=== PATIENT | male | born 1940 | race Caucasian/White ===

== ENCOUNTER 2023-07-12 19:00 | Inpatient (IN) | payer MEDICARE ==
[~2023-07-12] VITALS: Ht 182.9 cm; Wt 84.8 kg
[2023-07-12] MEDS ORDERED: IV NS 0.9% 250 ML IV ONE (19:20)
[2023-07-12] MEDS ORDERED: IOHEXOL-350 100 ML VIAL IV ONE (19:20)
[2023-07-12 19:42] LABS: BASOPHILS # (AUTO) 0.1 K/uL (0.0-0.2); BASOPHILS % (AUTO) 0.8 % (0.0-2.0); EOSINOPHILS # (AUTO) 0.1 K/uL (0.0-0.7); EOSINOPHILS % (AUTO) 1.3 % (0.0-6.0); HEMATOCRIT 37 % (39-51); HEMOGLOBIN 12.6 g/dL (13.5-17.5); LYMPHOCYTES # (AUTO) 1.2 K/uL (0.8-4.8); LYMPHOCYTES % (AUTO) 14.8 % (20.0-44.0); MEAN CORPUSCULAR HEMOGLOBIN 31 PG (26.0-33.0); MEAN CORPUSCULAR HGB CONC 34 g/dl (31.0-36.0); MEAN CORPUSCULAR VOLUME 92 fL (80-96); MONOCYTES # (AUTO) 0.7 K/uL (0.1-1.30); NEUTROPHILS # (AUTO) 5.8 K/uL (1.8-8.9); NEUTROPHILS % (AUTO) 74.1 % (43.0-81.0); PLATELET COUNT (AUTO) 181 K/uL (150-450); RED BLOOD CELL COUNT(AUTO) 4.03 MIL/uL (4.5-6.0); RED CELL DISTRIBUTION WIDTH 14.2 % (11.5-15.0); WHITE BLOOD COUNT (AUTO) 7.8 K/uL (4.3-11.0)
[2023-07-12 19:55] LABS: CALCIUM, SERUM 8.4 mg/dL (8.5-10.1); CARBON DIOXIDE 24 mmol/L (21-32); CHLORIDE 102 mmol/L (98-107); CREATININE 0.9 mg/dL (0.6-1.3); GLUCOSE 117 mg/dL (74-106); POTASSIUM 3.6 mmol/L (3.5-5.1); SODIUM SERUM 134 mmol/L (136-145); UREA NITROGEN, BLOOD 20 mg/dL (7-18)
[2023-07-12 20:04] LABS: INR 1.13 (0.91-1.10); PARTIAL THROMBOPLASTIN TIME 22.3 SEC (24.3-34.3); PROTHROMBIN TIME 11.9 SECS (9.2-11.1)
[2023-07-12 20:26] LABS: APPEARANCE,URINE CLEAR (CLEAR); BILIRUBIN,URINE NEGATIVE (NEGATIVE); BLOOD, URINE NEGATIVE Ery/uL (NEGATIVE); COLOR,URINE YELLOW (YELLOW); KETONES,URINE TRACE mg/dL (NEGATIVE); LEUKOCYTE ESTERASE ,URINE NEGATIVE (NEGATIVE); NITRITE, URINE NEGATIVE (NEGATIVE); PROTEIN,URINE NEGATIVE (NEGATIVE); UGLUCOSE NEGATIVE (NEGATIVE); UROBILINOGEN,URINE 0.2 EU/dL (0.2)
[2023-07-12] MEDS ORDERED: hydrALAZINE HCL IV 20 MG VIAL IV PRN (21:30)
[2023-07-12 21:39] LABS: AMPHETAMINE, URINE NEGATIVE (NEGATIVE); BARBITURATE, URINE NEGATIVE (NEGATIVE); BENZODIAZEPINE, URINE NEGATIVE (NEGATIVE); CANNABINOID, URINE NEGATIVE (NEGATIVE); COCCAINE, URINE NEGATIVE (NEGATIVE); OPIATE, URINE NEGATIVE (NEGATIVE); PHENCYCLIDINE SCREEN,URINE NEGATIVE (NEGATIVE)
[2023-07-13] MEDS: ENOXAPARIN SODIUM 40 MG/0.4 ML DISP.SYRIN SQ SCH ×2 (02:40→23:05)
[2023-07-13] MEDS ORDERED: SIMVASTATIN 40 MG TABLET PO SCH (02:41)
[2023-07-13] MEDS ORDERED: ENOXAPARIN SODIUM 40 MG/0.4 ML DISP.SYRIN SQ ONE (03:59)
[2023-07-13] MEDS ORDERED: SIMVASTATIN 20 MG TABLET ONE (04:00)
[2023-07-13] MEDS: IV NS 0.9% 1,000 ML IV PRN ×2 (04:06→23:04)
[2023-07-13] MEDS ORDERED: PANTOPRAZOLE 40 MG TABLET.DR PO ONE (08:40)
[2023-07-13] MEDS ORDERED: ASPIRIN 325 MG TABLET ONE (08:41)
[2023-07-13] MEDS: PANTOPRAZOLE 40 MG TABLET.DR PO SCH (08:42)
[2023-07-13] MEDS: ASPIRIN EC 325 MG TABLET.DR PO SCH (08:42)
[2023-07-13] MEDS ORDERED: ASPIRIN EC 325 MG TABLET.DR PO ONE (08:42)
[2023-07-13 11:08] LABS: BASOPHILS # (AUTO) 0.1 K/uL (0.0-0.2); BASOPHILS % (AUTO) 0.6 % (0.0-2.0); CALCIUM, SERUM 8.6 mg/dL (8.5-10.1); CARBON DIOXIDE 22 mmol/L (21-32); CHLORIDE 104 mmol/L (98-107); CREATININE 0.9 mg/dL (0.6-1.3); EOSINOPHILS % (AUTO) 0.3 % (0.0-6.0); GLUCOSE 124 mg/dL (74-106); HEMATOCRIT 40 % (39-51); HEMOGLOBIN 13.7 g/dL (13.5-17.5); LYMPHOCYTES # (AUTO) 0.8 K/uL (0.8-4.8); LYMPHOCYTES % (AUTO) 9.2 % (20.0-44.0); MEAN CORPUSCULAR HEMOGLOBIN 32 PG (26.0-33.0); MEAN CORPUSCULAR HGB CONC 35 g/dl (31.0-36.0); MEAN CORPUSCULAR VOLUME 92 fL (80-96); MONOCYTES # (AUTO) 0.9 K/uL (0.1-1.30); MONOCYTES % (AUTO) 10.7 % (2.0-12.0); NEUTROPHILS % (AUTO) 79.2 % (43.0-81.0); PLATELET COUNT (AUTO) 190 K/uL (150-450); POTASSIUM 3.8 mmol/L (3.5-5.1); RED BLOOD CELL COUNT(AUTO) 4.33 MIL/uL (4.5-6.0); RED CELL DISTRIBUTION WIDTH 13.9 % (11.5-15.0); SODIUM SERUM 137 mmol/L (136-145); UREA NITROGEN, BLOOD 16 mg/dL (7-18); WHITE BLOOD COUNT (AUTO) 8.8 K/uL (4.3-11.0)
[2023-07-13 11:27] LABS: INR 1.07 (0.91-1.10); PARTIAL THROMBOPLASTIN TIME 26.7 SEC (24.3-34.3); PROTHROMBIN TIME 11.3 SECS (9.2-11.1)
[2023-07-13 12:02] LABS: CHOLESTEROL 185 mg/dL (<200); HDL CHOLESTEROL 42 mg/dL (40-60); LDL 117 mg/dL (0-99); TRIGLYCERIDES 84 mg/dL (30-150)
[2023-07-13 20:45] VITALS: BP 134/71; TEMP 97.8; O2SAT 98
[2023-07-13 21:00] VITALS: BP 138/80; TEMP 97.8; O2SAT 99
[2023-07-13 21:02] VITALS: BP 134/71; TEMP 97.8; O2SAT 98
[2023-07-13 22:28] VITALS: BP 134/71; TEMP 97.8; O2SAT 98
[2023-07-13] MEDS: SIMVASTATIN 20 MG TABLET PO SCH (23:05)
[2023-07-14] VITALS: BP 143/78; TEMP 97.9; O2SAT 97
[2023-07-14 04:00] VITALS: BP 124/64; TEMP 97.9; O2SAT 94
[2023-07-14 04:55] VITALS: BP 124/64; TEMP 97.9; O2SAT 94
[2023-07-14 07:09] LABS: BASOPHILS % (AUTO) 0.4 % (0.0-2.0); EOSINOPHILS # (AUTO) 0.1 K/uL (0.0-0.7); EOSINOPHILS % (AUTO) 1.3 % (0.0-6.0); HEMATOCRIT 37 % (39-51); LYMPHOCYTES # (AUTO) 0.9 K/uL (0.8-4.8); LYMPHOCYTES % (AUTO) 12.2 % (20.0-44.0); MEAN CORPUSCULAR HEMOGLOBIN 32 PG (26.0-33.0); MEAN CORPUSCULAR HGB CONC 35 g/dl (31.0-36.0); MEAN CORPUSCULAR VOLUME 92 fL (80-96); MONOCYTES # (AUTO) 0.8 K/uL (0.1-1.30); MONOCYTES % (AUTO) 11.4 % (2.0-12.0); NEUTROPHILS # (AUTO) 5.4 K/uL (1.8-8.9); NEUTROPHILS % (AUTO) 74.7 % (43.0-81.0); PLATELET COUNT (AUTO) 178 K/uL (150-450); RED BLOOD CELL COUNT(AUTO) 4.02 MIL/uL (4.5-6.0); RED CELL DISTRIBUTION WIDTH 13.9 % (11.5-15.0); WHITE BLOOD COUNT (AUTO) 7.2 K/uL (4.3-11.0)
[2023-07-14 07:30] VITALS: BP 130/71; TEMP 98.1; O2SAT 97
[2023-07-14 07:33] LABS: CALCIUM, SERUM 8.5 mg/dL (8.5-10.1); CARBON DIOXIDE 23 mmol/L (21-32); CHLORIDE 107 mmol/L (98-107); CREATININE 0.7 mg/dL (0.6-1.3); GLUCOSE 102 mg/dL (74-106); MAGNESIUM 2.2 mg/dL (1.8-2.4); POTASSIUM 3.4 mmol/L (3.5-5.1); SODIUM SERUM 139 mmol/L (136-145); UREA NITROGEN, BLOOD 14 mg/dL (7-18)
[2023-07-14 08:11] LABS: FOLIC ACID 6.7 ng/mL (>3.0)
[2023-07-14] MEDS: PANTOPRAZOLE 40 MG TABLET.DR PO SCH (08:23)
[2023-07-14] MEDS: ASPIRIN EC 325 MG TABLET.DR PO SCH (08:24)
[2023-07-14 10:07] LABS: THYROID STIMULATING HORMONE 0.469 uIU/mL (0.358-3.74)
[2023-07-14] MEDS ORDERED: POTASSIUM CHLORIDE 20 MEQ TAB.PRT.SR PO SCH ×2 (11:00→11:30)
[2023-07-14] MEDS ORDERED: ASPI-1420 PO (13:35)
[2023-07-14] MEDS ORDERED: ATOR40TA PO (13:35)
[2023-07-14 16:00] VITALS: BP 143/77; TEMP 97.5; O2SAT 98
[2023-07-14] MEDS: IV NS 0.9% 1,000 ML IV PRN (18:38)
[2023-07-14 20:00] VITALS: BP 140/71; TEMP 98.1; O2SAT 99
[2023-07-14] MEDS: SIMVASTATIN 20 MG TABLET PO SCH (22:24)
[2023-07-14] MEDS: ENOXAPARIN SODIUM 40 MG/0.4 ML DISP.SYRIN SQ SCH (22:26)
[2023-07-15] VITALS: BP 142/74; TEMP 98.6; O2SAT 96
[2023-07-15 04:00] VITALS: BP 135/79; TEMP 98.2; O2SAT 96
[2023-07-15 07:18] LABS: CALCIUM, SERUM 8.5 mg/dL (8.5-10.1); CREATININE 0.7 mg/dL (0.6-1.3); POTASSIUM 3.8 mmol/L (3.5-5.1)
[2023-07-15 07:30] VITALS: BP 145/74; TEMP 97.9; O2SAT 99
[2023-07-15] MEDS: PANTOPRAZOLE 40 MG TABLET.DR PO SCH (07:32)
[2023-07-15] MEDS: ASPIRIN EC 325 MG TABLET.DR PO SCH (08:25)
[2023-07-15] MEDS ORDERED: ATORVASTATIN 40 MG TABLET PO SCH (18:00)
== END 2023-07-15 09:30 | disposition home or self-care (01) | DRG 73 ==
LOC: ER 19:18 → TRANSITION 07-13 02:23 → TELE 07-13 20:11
PROVIDERS: ADMIT Nurse Practitioner Acute Care; ATTEND Nurse Practitioner Family
DX: G90.8 Other disorders of autonomic nervous system (principal); G93.41 Metabolic encephalopathy; G45.9 Transient cerebral ischemic attack, unspecified; R79.89 Other specified abnormal findings of blood chemistry; D63.8 Anemia in other chronic diseases classified elsewhere; Z86.73 Personal history of transient ischemic attack (TIA), and cerebral infarction without residual deficits; I95.9 Hypotension, unspecified; R00.1 Bradycardia, unspecified; R29.704 NIHSS score 4
CPT/HCPCS: 36415; 70450-TC; 70496-TC; 70498-TC; 70544-TC; 70551-TC; 71045-TC; 80048-TC; 80061-TC; 82607-TC; 82728-TC; 83540-TC; 83735-TC; 83921; 84100-TC; 84439-TC; 84443-TC; 84484-TC; 85025-TC; 85652-TC; 85730-TC; 87081-TC; 92526; 92611-TC; 93307-TC; 93880-TC; A4223; G0378; J0360; J1650; J7030; J7050; Q9967